=== PATIENT | male | born 1990 | race Caucasian/White ===

== ENCOUNTER 2017-04-12 03:21 | Emergency (ER) | payer BC ==
[~2017-04-12] VITALS: Ht 177.8 cm; Wt 84.1 kg
[2017-04-12] MEDS ORDERED: HALOPERIDOL LACTATE 5 MG/ML 1 ML VIAL ONE (03:28)
[2017-04-12] MEDS ORDERED: LORAZEPAM 2 MG/ML 1 ML VIAL ONE (03:29)
[2017-04-12 03:30] VITALS: O2SAT 100; Ht 177.8 cm; Wt 84.1 kg
[2017-04-12 03:58] LABS: BUN/CREATININE RATIO 8.7 (10-20); CALCIUM 8.8 mg/dl (8.5-10.1); CREATININE 1.3 mg/dl (0.60-1.40); POTASSIUM 3.8 mmol/L (3.5-5.1)
--- NOTE | 2017-04-12 06:25 | EMERGENCY ROOM VISIT NOTE ---
History First contact with patient: 03:22 Chief Complaint: ALCOHOL OVERDOSE Stated Complaint: ALCOHOL OVERDOSE Nursing Triage Summary: pt is being nonverbal at this time. will not answer any questions. History of Present Illness The patient is a 27 year old male who presents to the Emergency Room with complaints of alcohol intoxication. Patient made statements to the police that he had thoughts of hurting himself and other people while at [facility] intoxicated. Patient is unwilling to answer any questions at this time. He shakes his has no when asked if he had any drug use tonight. He also shakes his head no to having any chest pain, difficulty breathing, abdominal pain or any other medical complaints. He shakes his head yes to drinking alcohol tonight. Patient probably agreed to give history and denies any current medical complaints. Patient denies stating that he had any thoughts of hurting herself or anyone else at [facility]. Patient is still intoxicated though. He was informed that when he is sober he will be reassessed and reasked these questions. 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 I informed the patient that everything is being done for his safety and staffs safety. Patient was then upset and crying. Review of Systems See HPI for pertinent positives & negatives. A total of 10 systems reviewed and were otherwise negative. Past Medical/Surgical History None Social History Smoking Status: Unknown if Ever Smoked Alcohol Use: occasionally Drug Use: none Occupation Status: [employer] student Current/Historical Medications No Active Prescriptions or Reported Meds Allergies Coded Allergies: No Known Allergies (Unverified , 04/12/17) Physical Exam Vital Signs Date Time Temp Pulse Resp B/P Pulse Ox O2 Delivery O2 Flow Rate FiO2 04/12/17 05:30 78 18 111/62 95 Room Air 04/12/17 03:30 100 Room Air 04/12/17 03:30 37.4 126 20 167/83 100 Room Air 04/12/17 03:30 100 Room Air 04/12/17 03:27 108 Physical Exam PHYSICAL EXAM: VITALS: Vitals are noted on the nurse's note and reviewed by myself. Vital signs stable. GENERAL: White male with EtOH odor uncooperative staff, in no acute distress, nondiaphoretic, well-developed well-nourished. The patient is visibly intoxicated. SKIN: The skin was without obvious lacerations, abrasions, or rashes. There is no tenting of the skin. Capillary reflex less than 2 seconds. HEENT: Normocephalic, atraumatic. PERRLA. EOMI. Conjunctiva with mild injection without icterus. Tympanic membranes without erythema or effusion bilaterally no hemotympanum. External auditory canals are clear. Nares patent bilaterally. No epistaxis. Oropharynx without erythema or exudate. Uvula midline. Oral mucosal moist. No lymphadenopathy. Neck is supple without cervical spine tenderness. HEART: Regular rate and rhythm without murmurs gallops or rubs. Peripheral pulses 2+. LUNGS: Clear to auscultation bilaterally without wheezes, rales or rhonchi. ABDOMEN: Positive bowel sounds x 4. Normal tympanic percussion. Soft, nontender, without masses or organomegaly. MUSCULOSKELETAL: Gross motor function of the upper and lower extremities intact. The patient has a staggering gait. NEUROLOGIC: The patient is visibly intoxicated. Once they were more sober they were alert and oriented to person place and time. Medical Decision & Procedures Laboratory Results 04/12/17 03:33 Test 04/12/17 03:33 Anion Gap 6.0 mmol/L (3-11) Est Creatinine Clear Calc Drug Dose 89.7 ml/min Estimated GFR () 87.9 Estimated GFR (Non- 75.8 BUN/Creatinine Ratio 8.7 (10-20) Calcium Level 8.8 mg/dl (8.5-10.1) Ethyl Alcohol mg/dL 222.0 mg/dl (0-3) ED Course Prior records/ancillary studies reviewed. Triage Nursing notes reviewed. Additional history obtained from EMS. The patient's history was concerning for altered mental status and a possible alcohol overdose. Differential diagnosis: Etiologies such as alcohol intoxication, toxicologic, infection, hypoglycemia, electrolyte abnormalities, cardiac sources, intracerebral event, neurologic, as well as others were entertained. Physical examination: As above. The patient is clinically intoxicated. no trauma noted. ER treatment provided: Monitoring Aspiration precautions The patient was frequently reassessed. Diagnostic interpretation by me: Cardiac monitoring did not reveal any evidence of dysrhythmia. The labs revealed no worrisome electrolyte abnormality. The patient's blood alcohol level was 222 mg/dL. Patient refused to open his mouth up for oral temperature despite multiple times by nursing. Rectal temperature was done and patient then became combative. He was held down by security for his temperature. After half hour in the ER patient then became more cooperative. Patient was informed that he' ll be reassessed when he sober as he made statements to the police that he had thoughts of hurting himself and other people. Patient was very upset about this. Case is signed out to Didier Chauhan PA-C pending patient sobering up and reevaluation in stable condition as patient supposedly made statements of hurting himself and other people. case reviewed with my Attending. Medical Decision As above Impression Primary Impression: Alcoholic intoxication Departure Information Prescriptions No Active Prescriptions or Reported Meds Patient Instructions My [facility] Additional Instructions Keep well-hydrated. Tylenol every 6 hours as needed for pain (Maximum 3000 mg Tylenol in 24 hr period). Follow up with family doctor and/or health services as needed. No driving for the next 24 hours. Recommend no alcohol for the next 48 hours and avoid binge drinking in the future. Return to ER sooner for chest pain, abdominal pain, worsening signs or symptoms or as needed. Problem Qualifiers Primary Impression: Alcoholic intoxication Complication of substance-induced condition: uncomplicated Qualified Codes: F10.920 - Alcohol use, unspecified with intoxication, uncomplicated
[2017-04-12 07:02] VITALS: TEMP 36.9
--- NOTE | 2017-04-12 09:45 | EMERGENCY ROOM VISIT NOTE ---
ED Visit Note First contact with patient: 06:38 This patient's case was signed out to me by Jesika Davis PA-C at the end of her shift. The patient had presented with alcohol intoxication but he had made statements about hurting himself and others to the police prior to coming to the emergency room. He would not answer questions verbally on arrival to the ER. The patient's alcohol level was 222. He will be reassessed when he is not intoxicated. At 9:44 AM the patient was assessed. I ask him what happened last evening prior to him coming to the emergency room. The patient states that he had called an [employer] to pick him up because he felt that someone was going to harm him. When the slasher hand came all they were concerned about was that he was drinking and did not want to listen to him about his concern for his safety. He feels that the police failed him. The patient currently denies any suicidal or homicidal ideations. The patient denies any depressive symptoms. The patient denies any history of depression or anxiety. The patient denies any history of suicidal homicidal ideations. The patient was discharged home in stable condition. Both his parents were in the room when I reevaluated the patient. DIAGNOSIS: Alcohol intoxication TREATMENT PLAN: Do not drink alcohol excessively. Recommend hydration today
[2017-04-12 09:55] VITALS: BP 134/70; PULSE 94; O2SAT 97
== END 2017-04-12 09:56 | disposition home or self-care (01) ==
LOC: EDBD 03:21 → C.EDB 03:22
DX: F10.129 Alcohol abuse with intoxication, unspecified (principal); Y90.7 Blood alcohol level of 200-239 mg/100 ml